=== PATIENT | female | born 1970 | race African-American/Black ===

== ENCOUNTER 2025-04-22 01:16 | Inpatient (IN) | payer SELFPAY ==
[~2025-04-22] VITALS: Ht 170.2 cm; Wt 152.4 kg
[2025-04-22 01:28] VITALS: O2SAT 96
[2025-04-22 02:05] LABS: BASOPHILS % 0.5 % (0.0-2.0); EOSINOPHILS % 1.4 % (0.0-5.0); HEMATOCRIT. 38.8 % (36.0-48.0); HEMOGLOBIN. 12.8 g/dL (12.0-16.0); LYMPHOCYTES % 25.8 % (20.0-50.0); MEAN PLATELET VOLUME 10.4 fl (7.4-10.4); MONOCYTES % 8.4 % (2.0-8.0); NEUTROPHILS % 63.9 % (40.0-76.0); PLATELET 206 x1000/uL (130-400); RED BLOOD CELL COUNT 4.27 mill/uL (4.2-5.4); RED CELL DISTRIBUTION WIDTH 13.9 % (11.6-14.6)
[2025-04-22 02:33] LABS: CREATININE 0.6 mg/dL (0.6-1.0); UREA NITROGEN BLOOD 9 mg/dL (9-23)
[2025-04-22 02:34] LABS: TROPONIN I HIGH SENSITIVITY < 4 ng/L (3.0-34)
[2025-04-22] MEDS: MORPHINE SULFATE 4 MG/ML INJ (FOR IV/IM USE) IV ONE (07:16)
[2025-04-22 08:00] VITALS: BP 113/44; PULSE 66; RESP 18; TEMP 36.3; O2SAT 97
[2025-04-22] MEDS ORDERED: ONDANSETRON HCL 4MG/2ML INJ IV PRN (09:30)
[2025-04-22] MEDS ORDERED: CLONIDINE 0.1MG TABLET PO PRN (09:30)
[2025-04-22] MEDS ORDERED: NITROGLYCERIN SPRAY/4.9GM CAN TL PRN (09:30)
[2025-04-22] MEDS ORDERED: IBUPROFEN 400MG TABLET PO ONE (09:30)
[2025-04-22] MEDS: PANTOPRAZOLE SODIUM 40 MG/VIAL IV SCH (10:55)
[2025-04-22 11:45] LABS: INR 1.0
[2025-04-22 11:58] VITALS: BP 113/44; PULSE 66; RESP 18; TEMP 36.3068
[2025-04-22 12:00] VITALS: BP 121/59; PULSE 72; RESP 15; TEMP 36.1; O2SAT 96
[2025-04-22 12:06] LABS: CREATININE 0.5 mg/dL (0.6-1.0)
[2025-04-22 12:07] LABS: LDL CHOLESTEROL 132 mg/dL (5-100); TRIGLYCERIDE 85 mg/dL (0-150); UREA NITROGEN BLOOD 6 mg/dL (9-23)
[2025-04-22 12:08] LABS: ASPARTATE AMINOTRANSFERASE 13 IU/L (<34)
[2025-04-22 12:09] LABS: BILIRUBIN DIRECT 0.2 mg/dL (<=3.0); BILIRUBIN TOTAL 0.7 mg/dL (0.1-1.0); PHOSPHORUS 3.0 mg/dL (2.5-4.9); PROTEIN TOTAL 6.5 g/dL (6.0-8.3)
[2025-04-22 12:10] LABS: T4 FREE 1.05 ng/dL (0.89-1.76)
[2025-04-22 14:04] LABS: HEPATITIS A AB IGM NEGATIVE (Negative)
[2025-04-22 14:05] LABS: HEPATITIS B CORE AB IGM NEGATIVE (Negative); HEPATITIS C AB NON REACTIVE (Neg) (Negative)
[2025-04-22 15:05] LABS: TROPONIN I HIGH SENSITIVITY < 4 ng/L (3.0-34)
[2025-04-22 16:00] VITALS: BP 116/48; PULSE 62; RESP 18; TEMP 36.4; O2SAT 98
[2025-04-22] MEDS: MAGNESIUM 2 G PREMIX 50 ML IV NR (17:03)
[2025-04-22 19:45] LABS: CLARITY URINE CLOUDY (CLEAR); COLOR URINE YELLOW (YELLOW); GLUCOSE URINE NEGATIVE (NEGATIVE); KETONES URINE NEGATIVE (NEGATIVE); LEUKOCYTE ESTERASE URINE TRACE (NEGATIVE); NITRITE URINE NEGATIVE (NEGATIVE); OCCULT BLOOD URINE NEGATIVE (NEGATIVE); PH URINE 6.0 (4.5-8.0); PROTEIN URINE NEGATIVE (NEGATIVE); SPECIFIC GRAVITY URINE 1.015 (1.005-1.030); UROBILINOGEN URINE 0.2 E.U./dL (0.2-1.0)
[2025-04-22 19:58] LABS: BACTERIA URINE 1+; RBC URINE 0-2 /hpf (0-2); SQUAMOUS EPITHELIAL CELL URINE 2+ /lpf (RARE/1+)
[2025-04-22 20:00] VITALS: BP 110/53; PULSE 73; RESP 17; TEMP 36.5; O2SAT 97
[2025-04-22 20:13] LABS: *AMPHETAMINES SCREEN URINE NEGATIVE (NEGATIVE); *BARBITURATES SCREEN URINE NEGATIVE (NEGATIVE); *BENZODIAZEPINES SCREEN URINE NEGATIVE (NEGATIVE); *COCAINE SCREEN URINE NEGATIVE (NEGATIVE)
[2025-04-22 20:14] LABS: CANNABINOID URINE SCREEN NEGATIVE (NEGATIVE); ECSTASY MDMA SCREEN URINE NEGATIVE (NEGATIVE); METHADONE URINE SCREEN NEGATIVE (NEGATIVE); OPIATES URINE SCREEN PRESUMPTIVE POSITIVE (NEGATIVE); PHENCYCLIDINE URINE SCREEN NEGATIVE (NEGATIVE)
[2025-04-22] MEDS: ATORVASTATIN CALCIUM 40MG TABLET PO SCH (22:57)
[2025-04-23] VITALS: BP 127/50; PULSE 70; RESP 18; TEMP 36.6; O2SAT 96
[2025-04-23 04:00] VITALS: BP 135/46; PULSE 65; RESP 18; TEMP 36.6; O2SAT 94
[2025-04-23 08:00] VITALS: BP 127/67; PULSE 69; RESP 19; TEMP 36.6; O2SAT 97
[2025-04-23 08:04] LABS: BASOPHILS % 1.2 % (0.0-2.0); EOSINOPHILS % 1.9 % (0.0-5.0); HEMATOCRIT. 38.0 % (36.0-48.0); HEMOGLOBIN. 12.5 g/dL (12.0-16.0); LYMPHOCYTES % 34.6 % (20.0-50.0); MEAN PLATELET VOLUME 10.8 fl (7.4-10.4); MONOCYTES % 10.1 % (2.0-8.0); NEUTROPHILS % 52.2 % (40.0-76.0); PLATELET 190 x1000/uL (130-400); RED BLOOD CELL COUNT 4.17 mill/uL (4.2-5.4); RED CELL DISTRIBUTION WIDTH 13.3 % (11.6-14.6)
[2025-04-23 08:24] LABS: CREATININE 0.5 mg/dL (0.6-1.0)
[2025-04-23 08:25] LABS: UREA NITROGEN BLOOD 7 mg/dL (9-23)
[2025-04-23 12:00] VITALS: BP 121/49; PULSE 65; RESP 19; TEMP 36.7; O2SAT 100
[2025-04-23 16:00] VITALS: BP 124/49; PULSE 74; RESP 19; TEMP 36.7; O2SAT 97
[2025-04-23 20:00] VITALS: BP 128/51; PULSE 76; RESP 18; TEMP 36.2; O2SAT 97
[2025-04-23] MEDS: RISPERIDONE 0.5MG TABLET PO SCH (22:29)
[2025-04-24] VITALS: BP 136/60; PULSE 71; RESP 19; TEMP 36.1; O2SAT 98
[2025-04-24 04:00] VITALS: BP 129/69; PULSE 67; RESP 19; TEMP 36.6; O2SAT 98
[2025-04-24 08:00] VITALS: BP 129/47; PULSE 75; RESP 19; TEMP 36.6; O2SAT 98
[2025-04-24 12:00] VITALS: BP 136/68; PULSE 73; RESP 19; TEMP 36.7; O2SAT 100
[2025-04-24] MEDS ORDERED: RISP05 PO (13:35)
[2025-04-24] MEDS ORDERED: LIP40 PO (13:35)
[2025-04-24 16:00] VITALS: BP 135/63; PULSE 86; RESP 19; TEMP 37.1; O2SAT 97
[2025-04-24 17:02] VITALS: BP 135/63; PULSE 86; TEMP 98.7
== END 2025-04-24 20:33 | disposition home or self-care (01) | DRG 251 ==
LOC: ER 01:25 → 8WST 08:24 → EDBEDREQ 08:28 → EDBEDREQTM 08:28 → ENRESERV 08:46
PROVIDERS: ADMIT Internal Medicine; ATTEND Internal Medicine
DX: R10.9 Unspecified abdominal pain (principal); I11.0 Hypertensive heart disease with heart failure; F25.0 Schizoaffective disorder, bipolar type; I50.9 Heart failure, unspecified; M54.9 Dorsalgia, unspecified; R07.2 Precordial pain; E83.42 Hypomagnesemia; F11.10 Opioid abuse, uncomplicated; E66.9 Obesity, unspecified; E11.9 Type 2 diabetes mellitus without complications; F90.9 Attention-deficit hyperactivity disorder, unspecified type; F17.200 Nicotine dependence, unspecified, uncomplicated; Z88.1 Allergy status to other antibiotic agents; Z88.6 Allergy status to analgesic agent; Z68.43 Body mass index [BMI] 50.0-59.9, adult
CPT/HCPCS: 36415; 71045; 80048; 80061; 80076; 80305; 81003; 82550; 83036; 83735; 83880; 84100; 84439; 84443; 84484; 85025; 85379; 86705; 86709; 87340; 93005; 93970; 99285; A4606; J2270; J2470; J3475

== ENCOUNTER 2025-04-30 20:18 | Emergency (ER) | payer SELFPAY ==
[~2025-04-30] VITALS: Ht 175.3 cm; Wt 125.0 kg
[~2025-04-30 20:18] MED LIST: LIP40 PO; RISP05 PO
[2025-04-30 20:42] VITALS: TEMP 36.9; O2SAT 100
[2025-04-30 22:07] VITALS: PULSE 71; O2SAT 100
[2025-04-30 22:10] VITALS: BP 159/87; RESP 15
[2025-04-30] MEDS: LIDOCAINE 5% PATCH TOP SCH (22:10)
[2025-04-30] MEDS ORDERED: LIDO-53 TP (22:57)
== END 2025-04-30 23:24 | disposition home or self-care (01) ==
LOC: ER 20:26
DX: M54.9 Dorsalgia, unspecified (principal); E11.9 Type 2 diabetes mellitus without complications; I10 Essential (primary) hypertension; Z79.899 Other long term (current) drug therapy; Z98.890 Other specified postprocedural states; Z88.1 Allergy status to other antibiotic agents; Z88.6 Allergy status to analgesic agent
CPT/HCPCS: 99282

== ENCOUNTER 2025-05-01 23:19 | Inpatient (IN) | payer SELFPAY ==
[~2025-05-01] VITALS: Ht 172.7 cm; Wt 156.9 kg
[~2025-05-01 23:19] MED LIST changes: +LIDO-53 TP
[2025-05-02 00:11] VITALS: O2SAT 96
[2025-05-02] MEDS ORDERED: CLINDAMYCIN 600 MG in DEXTROSE 5% WATER 50 ML IV ONE (01:15)
[2025-05-02] MEDS ORDERED: CLINDAMYCIN 600MG PREMIX 50 ML IV NR (01:30)
[2025-05-02 02:39] LABS: BASOPHILS % 0.6 % (0.0-2.0); EOSINOPHILS % 1.6 % (0.0-5.0); HEMATOCRIT. 38.7 % (36.0-48.0); HEMOGLOBIN. 12.7 g/dL (12.0-16.0); LYMPHOCYTES % 27.5 % (20.0-50.0); MEAN PLATELET VOLUME 10.7 fl (7.4-10.4); MONOCYTES % 8.3 % (2.0-8.0); NEUTROPHILS % 62.0 % (40.0-76.0); PLATELET 197 x1000/uL (130-400); RED BLOOD CELL COUNT 4.28 mill/uL (4.2-5.4); RED CELL DISTRIBUTION WIDTH 13.6 % (11.6-14.6)
[2025-05-02 02:51] LABS: CREATININE 0.6 mg/dL (0.6-1.0)
[2025-05-02 02:52] LABS: UREA NITROGEN BLOOD 9 mg/dL (9-23)
[2025-05-02 02:53] LABS: ASPARTATE AMINOTRANSFERASE 11 IU/L (<34)
[2025-05-02 02:54] LABS: BILIRUBIN DIRECT 0.2 mg/dL (<=3.0); BILIRUBIN TOTAL 0.6 mg/dL (0.1-1.0); PROTEIN TOTAL 6.8 g/dL (6.0-8.3)
[2025-05-02 03:07] LABS: HCG SCREEN NEGATIVE
[2025-05-02] MEDS: CLINDAMYCIN 600MG PREMIX 50 ML IV NR (05:26)
[2025-05-02 08:00] VITALS: BP 163/46; PULSE 74; RESP 16; TEMP 36.4; O2SAT 100
[2025-05-02 08:43] VITALS: BP 163/46; PULSE 74; RESP 16; TEMP 36.4736
[2025-05-02] MEDS ORDERED: HYDROCODONE/ACETAMINOPHEN 5/325MG TABLET PO PRN (09:30)
[2025-05-02] MEDS ORDERED: ACETAMINOPHEN 325MG TABLET PO PRN (09:45)
[2025-05-02] MEDS ORDERED: ONDANSETRON HCL 4MG/2ML INJ IV PRN (09:45)
[2025-05-02] MEDS ORDERED: CLINDAMYCIN 600 MG in DEXTROSE 5% WATER 50 ML IV SCH (09:45)
[2025-05-02 12:00] VITALS: BP 125/55; PULSE 79; RESP 16; TEMP 36.9; O2SAT 97
[2025-05-02 12:54] LABS: CLARITY URINE CLOUDY (CLEAR); COLOR URINE YELLOW (YELLOW); GLUCOSE URINE NEGATIVE (NEGATIVE); KETONES URINE NEGATIVE (NEGATIVE); LEUKOCYTE ESTERASE URINE NEGATIVE (NEGATIVE); NITRITE URINE NEGATIVE (NEGATIVE); OCCULT BLOOD URINE NEGATIVE (NEGATIVE); PH URINE 6.0 (4.5-8.0); PROTEIN URINE NEGATIVE (NEGATIVE); SPECIFIC GRAVITY URINE 1.020 (1.005-1.030); UROBILINOGEN URINE 0.2 E.U./dL (0.2-1.0)
[2025-05-02] MEDS: CLINDAMYCIN 600MG PREMIX 50 ML IV SCH (13:28)
[2025-05-02 13:43] LABS: BACTERIA URINE 2+; RBC URINE 0-2 /hpf (0-2); SQUAMOUS EPITHELIAL CELL URINE 3+ /lpf (RARE/1+); WBC URINE 0-2 /hpf (0-2); YEAST URINE NONE SEEN
[2025-05-02 16:00] VITALS: BP 123/54; PULSE 79; RESP 18; TEMP 36.8; O2SAT 97
[2025-05-02 20:00] VITALS: BP 135/67; PULSE 80; RESP 19; TEMP 36.7; O2SAT 98
[2025-05-02] MEDS: RISPERIDONE 0.5MG TABLET PO SCH (21:00)
[2025-05-02] MEDS: ATORVASTATIN CALCIUM 40MG TABLET PO SCH (21:14)
[2025-05-02] MEDS: NYSTATIN POWDER 15GM TOP SCH (22:08)
[2025-05-02] MEDS: LACTOBACILLUS RHAMNOSUS GG CAP PO SCH (22:08)
[2025-05-03] VITALS: BP 128/60; PULSE 84; RESP 17; TEMP 36.6; O2SAT 97
[2025-05-03 04:00] VITALS: BP 130/62; PULSE 82; RESP 18; TEMP 36.7; O2SAT 97
[2025-05-03 07:42] LABS: BASOPHILS % 0.5 % (0.0-2.0); EOSINOPHILS % 1.9 % (0.0-5.0); HEMATOCRIT. 37.6 % (36.0-48.0); HEMOGLOBIN. 12.5 g/dL (12.0-16.0); LYMPHOCYTES % 33.1 % (20.0-50.0); MEAN PLATELET VOLUME 11.3 fl (7.4-10.4); MONOCYTES % 8.2 % (2.0-8.0); NEUTROPHILS % 56.3 % (40.0-76.0); PLATELET 209 x1000/uL (130-400); RED BLOOD CELL COUNT 4.16 mill/uL (4.2-5.4); RED CELL DISTRIBUTION WIDTH 13.4 % (11.6-14.6)
[2025-05-03 07:49] LABS: CREATININE 0.6 mg/dL (0.6-1.0); UREA NITROGEN BLOOD 6 mg/dL (9-23)
[2025-05-03 08:00] VITALS: BP 136/64; PULSE 68; RESP 20; TEMP 36.3; O2SAT 99
[2025-05-03] MEDS: PANTOPRAZOLE SODIUM 40 MG/VIAL IV SCH (09:59)
[2025-05-03] MEDS: MULTIVITAMINS,THER W-MINERALS TABLET PO SCH (09:59)
[2025-05-03] MEDS: FOLIC ACID 1MG TABLET PO SCH (10:00)
[2025-05-03] MEDS: THIAMINE HCL 100MG TABLET PO SCH (10:00)
[2025-05-03 12:00] VITALS: BP 125/61; PULSE 74; RESP 20; TEMP 36.8; O2SAT 96
[2025-05-03] MEDS ORDERED: CEFEPIME 2GM IN DEXT 5% 100ML IV SCH (12:45)
[2025-05-03] MEDS: CEFEPIME 2GM PREMIX 100ML IV SCH (15:27)
[2025-05-03 16:00] VITALS: BP 127/50; PULSE 75; RESP 20; TEMP 36.3; O2SAT 98
[2025-05-03 20:00] VITALS: BP 129/62; PULSE 72; RESP 20; TEMP 36.4; O2SAT 97
[2025-05-04] VITALS: BP 120/56; PULSE 67; RESP 20; TEMP 36.3; O2SAT 98
[2025-05-04 04:00] VITALS: BP 143/80; PULSE 70; RESP 20; TEMP 36.4; O2SAT 99
[2025-05-04] MEDS: CLINDAMYCIN 600MG PREMIX 50 ML IV SCH (05:18)
[2025-05-04 06:48] LABS: BASOPHILS % 1.0 % (0.0-2.0); EOSINOPHILS % 2.1 % (0.0-5.0); HEMATOCRIT. 39.6 % (36.0-48.0); HEMOGLOBIN. 13.3 g/dL (12.0-16.0); LYMPHOCYTES % 37.2 % (20.0-50.0); MEAN PLATELET VOLUME 11.1 fl (7.4-10.4); MONOCYTES % 8.7 % (2.0-8.0); NEUTROPHILS % 51.0 % (40.0-76.0); PLATELET 211 x1000/uL (130-400); RED BLOOD CELL COUNT 4.39 mill/uL (4.2-5.4); RED CELL DISTRIBUTION WIDTH 13.3 % (11.6-14.6)
[2025-05-04 07:06] LABS: CREATININE 0.6 mg/dL (0.6-1.0); UREA NITROGEN BLOOD 6 mg/dL (9-23)
[2025-05-04 08:00] VITALS: BP 124/47; PULSE 63; RESP 19; TEMP 36.2; O2SAT 96
[2025-05-04] MEDS: AMOXICILLIN/POTASSIUM CLAVULANATE 875/125MG TAB PO SCH (09:45)
[2025-05-04 12:00] VITALS: BP 132/61; PULSE 69; RESP 18; TEMP 36.1; O2SAT 96
[2025-05-04 16:00] VITALS: BP 152/60; PULSE 70; RESP 16; TEMP 36.2; O2SAT 99
[2025-05-04 20:00] VITALS: BP 125/60; PULSE 72; RESP 16; TEMP 36.4; O2SAT 98
[2025-05-05 04:00] VITALS: BP 112/46; PULSE 66; RESP 16; TEMP 36.3; O2SAT 95
[2025-05-05 08:00] VITALS: BP 142/94; PULSE 82; TEMP 36; O2SAT 100
[2025-05-05] MEDS: FAMOTIDINE 20MG/2ML VIAL IV SCH (08:56)
[2025-05-05 12:00] VITALS: BP 108/47; PULSE 69; RESP 20; TEMP 36.3; O2SAT 100
[2025-05-05 16:00] VITALS: BP 155/56; PULSE 75; RESP 20; TEMP 36.6; O2SAT 100
[2025-05-05] MEDS ORDERED: CEFD300C3 MT (17:49)
[2025-05-05] MEDS ORDERED: TRIA60LO17 TP (17:53)
[2025-05-05] MEDS ORDERED: CLOT113C TP (17:53)
[2025-05-05 20:00] VITALS: BP 126/54; PULSE 64; RESP 17; TEMP 36.8; O2SAT 98
[2025-05-06] VITALS: BP 133/58; PULSE 74; RESP 16; TEMP 36.9; O2SAT 98
[2025-05-06 04:00] VITALS: BP 124/63; PULSE 64; RESP 16; TEMP 36.9; O2SAT 99
[2025-05-06 08:00] VITALS: BP 131/66; PULSE 72; RESP 18; TEMP 36.2; O2SAT 98
[2025-05-06] MEDS: ENOXAPARIN 40MG/0.4ML SYR SUBCUT SCH ×2 (09:19→21:00)
[2025-05-06 12:00] VITALS: BP 110/60; PULSE 69; RESP 19; TEMP 36.1; O2SAT 98
[2025-05-06 16:00] VITALS: BP 122/60; PULSE 72; RESP 19; TEMP 36.2; O2SAT 97
[2025-05-06 20:00] VITALS: BP 105/80; PULSE 87; RESP 14; TEMP 36.7; O2SAT 96
[2025-05-07] VITALS: BP 108/65; PULSE 80; RESP 18; TEMP 36.6; O2SAT 97
[2025-05-07 04:00] VITALS: BP 112/59; PULSE 76; RESP 16; TEMP 36.7; O2SAT 97
[2025-05-07 08:00] VITALS: BP 145/75; PULSE 67; RESP 16; TEMP 36.4; O2SAT 100
[2025-05-07] MEDS ORDERED: CEFUROXIME AXETIL 500MG TABLET PO SCH (09:00)
[2025-05-07] MEDS: CEFUROXIME AXETIL 250MG TABLET PO SCH (11:00)
[2025-05-07 12:00] VITALS: BP 123/56; PULSE 62; RESP 20; TEMP 36.2; O2SAT 100
[2025-05-07 16:00] VITALS: BP 112/48; PULSE 68; RESP 16; TEMP 36.2; O2SAT 100
[2025-05-07 20:00] VITALS: BP 127/60; PULSE 69; RESP 18; TEMP 36.4; O2SAT 99
[2025-05-08] VITALS: BP 130/62; PULSE 67; RESP 17; TEMP 36.7; O2SAT 99
[2025-05-08 04:00] VITALS: BP 124/63; PULSE 66; RESP 17; TEMP 36.7; O2SAT 99
[2025-05-08 08:00] VITALS: BP 135/60; PULSE 86; RESP 19; TEMP 36.2; O2SAT 100
[2025-05-08 12:00] VITALS: BP 148/64; PULSE 86; RESP 18; TEMP 36.8; O2SAT 100
[2025-05-08 16:00] VITALS: BP 110/67; PULSE 70; RESP 18; TEMP 36.6; O2SAT 99
[2025-05-08 20:00] VITALS: BP 112/59; PULSE 78; RESP 17; TEMP 36.7; O2SAT 99
[2025-05-09] VITALS: BP 108/60; PULSE 76; RESP 17; TEMP 36.7; O2SAT 99
[2025-05-09 04:00] VITALS: BP 128/63; PULSE 67; RESP 17; TEMP 36.6; O2SAT 99
[2025-05-09 08:00] VITALS: BP 139/55; PULSE 85; RESP 18; TEMP 36.5; O2SAT 95
[2025-05-09 11:17] VITALS: BP 124/70; PULSE 74; RESP 18; TEMP 97.8
== END 2025-05-09 11:59 | disposition home or self-care (01) | DRG 383 ==
LOC: ER 23:19 → EDBEDREQ 05-02 01:44 → 8EST 05-02 04:18 → EDBEDREQTM 05-02 05:05 → EDBEDREQ 05-02 05:05 → ENRESERV 05-02 07:57
PROVIDERS: ADMIT Internal Medicine; ATTEND Internal Medicine
DX: L03.311 Cellulitis of abdominal wall (principal); I11.0 Hypertensive heart disease with heart failure; I50.9 Heart failure, unspecified; Z59.00 Homelessness unspecified; Z68.43 Body mass index [BMI] 50.0-59.9, adult; B37.2 Candidiasis of skin and nail; E66.01 Morbid (severe) obesity due to excess calories; F17.210 Nicotine dependence, cigarettes, uncomplicated; J45.909 Unspecified asthma, uncomplicated; L30.4 Erythema intertrigo; F41.9 Anxiety disorder, unspecified; E87.6 Hypokalemia; N83.201 Unspecified ovarian cyst, right side; F19.90 Other psychoactive substance use, unspecified, uncomplicated; Z88.1 Allergy status to other antibiotic agents; Z88.6 Allergy status to analgesic agent
CPT/HCPCS: 36415; 71045; 74176; 80048; 80076; 81003; 84145; 84703; 85025; 87070; 87077; 87186; 97116; 97162; 99285; J0692; J1308; J1650; J2470; J3490; J7060

== ENCOUNTER 2025-05-31 14:04 | Emergency (ER) | payer SELFPAY ==
[~2025-05-31] VITALS: Ht 170.2 cm; Wt 330.0 kg
[~2025-05-31 14:04] MED LIST changes: +CEFD300C3 MT; +CLOT113C TP; +TRIA60LO17 TP
[2025-05-31 14:12] VITALS: BP 139/66; TEMP 36.5; O2SAT 100
[2025-05-31 14:14] VITALS: PULSE 81; RESP 18; O2SAT 99
[2025-05-31 19:41] LABS: BASOPHILS % 0.7 % (0.0-2.0); EOSINOPHILS % 1.6 % (0.0-5.0); HEMATOCRIT. 38.5 % (36.0-48.0); HEMOGLOBIN. 13.1 g/dL (12.0-16.0); LYMPHOCYTES % 24.9 % (20.0-50.0); MEAN PLATELET VOLUME 10.7 fl (7.4-10.4); MONOCYTES % 6.9 % (2.0-8.0); NEUTROPHILS % 65.9 % (40.0-76.0); PLATELET 192 x1000/uL (130-400); RED BLOOD CELL COUNT 4.26 mill/uL (4.2-5.4); RED CELL DISTRIBUTION WIDTH 14.1 % (11.6-14.6)
[2025-05-31 19:52] LABS: CREATININE 0.5 mg/dL (0.6-1.0); UREA NITROGEN BLOOD 7 mg/dL (9-23)
[2025-05-31 20:19] LABS: GLUCOSE URINE NEGATIVE (NEGATIVE); KETONES URINE TRACE (NEGATIVE); LEUKOCYTE ESTERASE URINE NEGATIVE (NEGATIVE); NITRITE URINE NEGATIVE (NEGATIVE); OCCULT BLOOD URINE NEGATIVE (NEGATIVE); PH URINE 6.0 (4.5-8.0); PROTEIN URINE 1+ (NEGATIVE); SPECIFIC GRAVITY URINE 1.028 (1.005-1.030); UROBILINOGEN URINE 1.0 E.U./dL (0.2-1.0)
[2025-05-31 21:00] LABS: COLOR URINE YELLOW (YELLOW)
[2025-05-31 21:01] LABS: BACTERIA URINE TRACE; CLARITY URINE SL HAZY (CLEAR); RBC URINE NONE SEEN /hpf (0-2); SQUAMOUS EPITHELIAL CELL URINE 1+ /lpf (RARE/1+); WBC URINE 0-2 /hpf (0-2)
[2025-05-31 21:02] LABS: MUCUS URINE 1+ /lpf (< = 2+)
[2025-05-31 21:16] LABS: HCG SCREEN NEGATIVE
[2025-05-31] MEDS ORDERED: CYCL10TA21 MT (21:27)
[2025-05-31] MEDS ORDERED: CYCL25PO15 MT (21:27)
[2025-05-31] MEDS: CYCLOBENZAPRINE 10MG TABLET PO ONE (21:34)
== END 2025-05-31 21:44 | disposition home or self-care (01) ==
LOC: ER 14:04
DX: M54.50 Low back pain, unspecified (principal); F41.9 Anxiety disorder, unspecified; I11.0 Hypertensive heart disease with heart failure; I50.9 Heart failure, unspecified; Z79.899 Other long term (current) drug therapy; Z88.1 Allergy status to other antibiotic agents; Z88.6 Allergy status to analgesic agent
CPT/HCPCS: 36415; 71045; 80048; 81003; 83880; 84703; 85025; 93970; 99284

== ENCOUNTER 2025-06-13 09:22 | Emergency (ER) | payer SELFPAY ==
[~2025-06-13] VITALS: Ht 165.1 cm; Wt 127.0 kg
[~2025-06-13 09:22] MED LIST changes: +CYCL10TA21 MT
[2025-06-13 09:26] VITALS: O2SAT 99
[2025-06-13 09:52] VITALS: BP 137/104; PULSE 84; RESP 18; TEMP 36.7; O2SAT 100
== END 2025-06-13 10:53 | disposition home or self-care (01) ==
LOC: ER 09:22
DX: M54.9 Dorsalgia, unspecified (principal); R07.9 Chest pain, unspecified; R11.2 Nausea with vomiting, unspecified; I11.0 Hypertensive heart disease with heart failure; I50.9 Heart failure, unspecified; F41.9 Anxiety disorder, unspecified; Z88.1 Allergy status to other antibiotic agents; Z88.6 Allergy status to analgesic agent
CPT/HCPCS: 99282; 99283

== ENCOUNTER 2025-07-14 09:42 | Emergency (ER) | payer SELFPAY ==
[~2025-07-14] VITALS: Ht 175.3 cm; Wt 123.0 kg
[2025-07-14 09:53] VITALS: TEMP 36.8; O2SAT 96
[2025-07-14] MEDS: ONDANSETRON 4MG ODT PO ONE (11:18)
[2025-07-14] MEDS: VISCOUS LIDOCAINE 2% 15 ML UDC MM ONE (11:18)
[2025-07-14] MEDS: MAGNESIUM/ALUMINUM HYDROXIDE/SIMETHICONE 30ML UDC PO ONE (11:18)
[2025-07-14 11:22] LABS: BASOPHILS % 0.9 % (0.0-2.0); EOSINOPHILS % 2.0 % (0.0-5.0); HEMATOCRIT. 41.0 % (36.0-48.0); HEMOGLOBIN. 13.4 g/dL (12.0-16.0); LYMPHOCYTES % 33.8 % (20.0-50.0); MEAN PLATELET VOLUME 10.8 fl (7.4-10.4); MONOCYTES % 9.8 % (2.0-8.0); NEUTROPHILS % 53.5 % (40.0-76.0); PLATELET 197 x1000/uL (130-400); RED BLOOD CELL COUNT 4.45 mill/uL (4.2-5.4); RED CELL DISTRIBUTION WIDTH 13.6 % (11.6-14.6)
[2025-07-14 11:31] LABS: CREATININE 0.5 mg/dL (0.6-1.0); UREA NITROGEN BLOOD 7 mg/dL (9-23)
[2025-07-14] MEDS ORDERED: FAMO40TA70 MT (12:00)
[2025-07-14] MEDS ORDERED: METR-167 MT (12:00)
[2025-07-14 12:26] VITALS: BP 163/74; PULSE 83; RESP 16; O2SAT 99
== END 2025-07-14 12:27 | disposition home or self-care (01) ==
LOC: ER 09:58
DX: N76.0 Acute vaginitis (principal); B96.89 Other specified bacterial agents as the cause of diseases classified elsewhere; E11.9 Type 2 diabetes mellitus without complications; I50.9 Heart failure, unspecified; K30 Functional dyspepsia; Z59.00 Homelessness unspecified; Z79.899 Other long term (current) drug therapy; Z98.890 Other specified postprocedural states; Z88.1 Allergy status to other antibiotic agents; Z88.6 Allergy status to analgesic agent
CPT/HCPCS: 99284; 80048; 81025; 85025; 87210; 36415; Q0162

== ENCOUNTER 2025-08-01 15:33 | Emergency (ER) | payer SELFPAY ==
[~2025-08-01] VITALS: Ht 172.7 cm; Wt 122.0 kg
[~2025-08-01 15:33] MED LIST changes: +FAMO40TA70 MT; +METR-167 MT
[2025-08-01 15:54] VITALS: O2SAT 96
[2025-08-01 16:37] LABS: CLARITY URINE CLEAR (CLEAR); COLOR URINE YELLOW (YELLOW); GLUCOSE URINE NEGATIVE (NEGATIVE); KETONES URINE NEGATIVE (NEGATIVE); LEUKOCYTE ESTERASE URINE NEGATIVE (NEGATIVE); NITRITE URINE NEGATIVE (NEGATIVE); OCCULT BLOOD URINE NEGATIVE (NEGATIVE); PH URINE 6.0 (4.5-8.0); PROTEIN URINE TRACE (NEGATIVE); SPECIFIC GRAVITY URINE 1.028 (1.005-1.030); UROBILINOGEN URINE 1.0 E.U./dL (0.2-1.0)
[2025-08-01 17:16] LABS: BACTERIA URINE 2+; RBC URINE 0-2 /hpf (0-2); SQUAMOUS EPITHELIAL CELL URINE 1+ /lpf (RARE/1+); WBC URINE 0-2 /hpf (0-2)
[2025-08-01 17:33] LABS: BASOPHILS % 0.5 % (0.0-2.0); EOSINOPHILS % 1.9 % (0.0-5.0); HEMATOCRIT. 40.3 % (36.0-48.0); HEMOGLOBIN. 13.2 g/dL (12.0-16.0); LYMPHOCYTES % 28.4 % (20.0-50.0); MEAN PLATELET VOLUME 10.6 fl (7.4-10.4); MONOCYTES % 6.7 % (2.0-8.0); NEUTROPHILS % 62.5 % (40.0-76.0); PLATELET 188 x1000/uL (130-400); RED BLOOD CELL COUNT 4.39 mill/uL (4.2-5.4); RED CELL DISTRIBUTION WIDTH 13.8 % (11.6-14.6)
[2025-08-01 17:43] LABS: CREATININE 0.6 mg/dL (0.6-1.0); UREA NITROGEN BLOOD < 5 mg/dL (9-23)
[2025-08-01 17:53] LABS: HCG SCREEN NEGATIVE
[2025-08-01 18:02] LABS: B-HCG QUANTITATIVE < 1 mIU/mL (<6)
[2025-08-01 23:34] VITALS: BP 124/47; PULSE 79; RESP 18; TEMP 36.9; O2SAT 100
[2025-08-05 05:09] LABS: CHLAMYDIA TRACHOMATIS NAA Negative (Negative); NEISSERIA GONORRHOEAE NAA Negative (Negative)
== END 2025-08-01 23:36 | disposition home or self-care (01) ==
LOC: ER 15:33
DX: E11.9 Type 2 diabetes mellitus without complications (principal); D25.9 Leiomyoma of uterus, unspecified; D64.9 Anemia, unspecified; Z79.899 Other long term (current) drug therapy; Z88.1 Allergy status to other antibiotic agents; Z88.6 Allergy status to analgesic agent
CPT/HCPCS: 36415; 76830; 76856; 80048; 81003; 81025; 84702; 84703; 85025; 87210; 87491; 87591; 99284